=== PATIENT | male | born 1965 | race African-American/Black ===

== ENCOUNTER 2019-02-27 09:49 | Inpatient (IN) | payer OTHER ==
[2019-02-27 11:58] VITALS: BMI 18.1
--- NOTE | 2019-02-27 14:15 | HP ---
CIWA Score Nausea/Vomitin-Mild Nausea/No Vomiting Muscle Tremors: 3 Anxiety: 2 Agitation: 3 Paroxysmal Sweats: 2 Orientation: 0-Oriented Tacttile Disturbances: 0-None Auditory Disturbances: 0-None Visual Disturbances: 0-None Headache: 0-None Present CIWA-Ar Total Score: 11 - Admission Criteria OASAS Guidelines: Admission for Medically Managed Detox: Requires at least one of the followin. CIWA greater than 12 2. Seizures within the past 24 hours 3. Delirium tremens within the past 24 hours 4. Hallucinations within the past 24 hours 5. Acute intervention needed for co occurring medical disorder 6. Acute intervention needed for co occurring psychiatric disorder 7. Severe withdrawal that cannot be handled at a lower level of care (continued vomiting, continued diarrhea, abnormal vital signs) requiring intravenous medication and/or fluids 8. Admission ROS S - HPI Chief Complaint: I drink too much and need to stop. Allergies/Adverse Reactions: Allergies Allergy/AdvReac Type Severity Reaction Status Date / Time No Known Allergies Allergy Verified 02/27/19 11:29 History of Present Illness: pt is a 53yr old male with a history of alcohol dependence seeking detox for treatment. Pt has had h/o of falls d/t intoxication. pt states he fell about 3 weeks ago and had head injury and had orin placed and now they are removed. Pt has a healed scar to back of head. Pt denies any headaches at this time. pt has h/t HIV, HTN, acid reflux. Exam Limitations: No Limitations - Ebola screening Have you traveled outside of the country in the last 21 days: No (N) Have you had contact with anyone from an Ebola affected area: No Have you been sick,other than usual withdrawal symptoms: No Do you have a fever: No - Review of Systems Constitutional: Chills, Diaphoresis, Night Sweats EENT: reports: Tearing, Dental Problems (missing teeth) Respiratory: reports: No Symptoms reported Cardiac: reports: Lightheadedness GI: reports: Poor Appetite, Poor Fluid Intake : reports: No Symptoms Reported Musculoskeletal: reports: No Symptoms Reported Integumentary: reports: Lumps (healed scar to back of head) Neuro: reports: Tingling, Tremors Endocrine: reports: Excessive Sweating, Flushing, Intolerance to Cold, Intolerance to Heat Hematology: reports: No Symptoms Reported Psychiatric: reports: Judgement Intact, Mood/Affect Appropiate, Orientated x3, Agitated, Anxious, Depressed Other Systems: Reviewed and Negative Patient History - Patient Medical History Hx Anemia: No Hx Asthma: No Hx Chronic Obstructive Pulmonary Disease (COPD): No Hx Cancer: No Hx Cardiac Disorders: No Hx Congestive Heart Failure: No Hx Hypertension: Yes Hx Hypercholesterolemia: No Hx Pacemaker: No HX Cerebrovascular Accident: No Hx Seizures: No Hx Dementia: No Hx Diabetes: No Hx Gastrointestinal Disorders: No Hx Liver Disease: No Hx Genitourinary Disorders: No Hx Sexually Transmitted Disorders: No Hx Renal Disease (ESRD): No Hx Thyroid Disease: No Hx Human Immunodeficiency Virus (HIV): Yes (dx in 1997, currently on medication) Hx Hepatitis C: Yes (never treatment.) Hx Depression: No Hx Suicide Attempt: No (denies) Hx Bipolar Disorder: No Hx Schizophrenia: No - Patient Surgical History Past Surgical History: No - PPD History Previous Implant?: Yes Documented Results: Negative w/o proof PPD to be Administered?: Yes - Reproductive History Patient is a Female of Child Bearing Age (11 -55 yrs old): No - Smoking Cessation Smoking history: Current every day smoker Have you smoked in the past 12 months: Yes Aproximately how many cigarettes per day: 1 Hx Chewing Tobacco Use: No Initiated information on smoking cessation: Yes 'Breaking Loose' booklet given: 02/27/19 - Substance & Tx. History Hx Alcohol Use: Yes Hx Substance Use: No Substance Use Type: Alcohol Hx Substance Use Treatment: No - Substances abused Alcohol Substance route: Oral Frequency: Daily Amount used: Beers/Liquor- a lot Age of first use: 16 Date of last use: 02/26/19 Family Disease History - Family Disease History Family History: Denies Admission Physical Exam S - Vital Signs Vital Signs: Vital Signs - 24 hr 02/27/19 11:54 Temperature 98.3 F Pulse Rate 88 Respiratory 18 Rate Blood Pressure 150/84 - Physical General Appearance: Yes: Appropriately Dressed, Mild Distress, Thin, Tremorous, Irritable, Sweating, Anxious HEENTM: Yes: Normal Voice Respiratory: Yes: Lungs Clear, Normal Breath Sounds, No Respiratory Distress Neck: Yes: Within Normal Limits Breast: Yes: Within Normal Limits Cardiology: Yes: Regular Rhythm, Regular Rate, S1, S2 Abdominal: Yes: Normal Bowel Sounds, Non Tender, Soft Genitourinary: Yes: Within Normal Limits Back: Yes: Normal Inspection Musculoskeletal: Yes: full range of Motion, Gait Steady, Back pain Extremities: Yes: Normal Capillary Refill, Non-Tender, Tremors Neurological: Yes: Fully Oriented, Alert, Normal Response Integumentary: Yes: Normal Color Lymphatic: Yes: Within Normal Limits - Diagnostic (1) Alcohol dependence with uncomplicated withdrawal Current Visit: Yes Status: Chronic (2) Head lump Current Visit: No Status: Chronic (3) H/O head injury without skull fracture Current Visit: No Status: Chronic (4) HIV disease Current Visit: Yes Status: Chronic Comment: currently on descovy and tivicay. (5) Hepatitis C virus Current Visit: Yes Status: Chronic Qualifiers: Viral hepatitis chronicity: chronic Hepatic coma status: without hepatic coma Qualified Code(s): B18.2 - Chronic viral hepatitis C Cleared for Admission S - Detox or Rehab [facility] Level of Care: Medically Managed Detox Regimen/Protocol: Librium Breathalyzer - Breathalyzer Breathalyzer: 0 Urine Drug Screen - Test Device Lot number: [id number] Expiration date: 01/30/20 - Control Is test valid?: Yes - Results Drug screen NEGATIVE: No Urine drug screen results: THC-Marijuana, ELLIS-Cocaine, BZO-Benzodiazepines Inpatient Rehab Admission - Rehab Decision to Admit Inpatient rehab admission?: No
[2019-02-27] MEDS ORDERED: MAG HYDROX/AL HYDROX/SIMETH 30 ML UNIT-DOSE CUP PO PRN (14:49)
[2019-02-27] MEDS ORDERED: NICOTINE POLACRILEX 2 MG GUM BUC PRN (14:49)
[2019-02-27] MEDS ORDERED: BISMUTH SUBSALICYLATE 524 MG/30 ML UD PO PRN (14:49)
[2019-02-27] MEDS ORDERED: ACETAMINOPHEN 325 MG TABLET (FP) PO PRN ×2 (14:49)
[2019-02-27] MEDS ORDERED: ONDANSETRON *ODT* 4 MG TABLET SL PRN (14:49)
[2019-02-27] MEDS ORDERED: MAGNESIUM HYDROX 2400MG/30ML ORAL SUSPENSION 30 ML CUP PO PRN (14:49)
[2019-02-27] MEDS ORDERED: MENTHOL/PHENOL 1 EACH UD MM PRN (14:49)
[2019-02-27] MEDS ORDERED: chlordiazePOXIDE HCL 10 MG CAPSULE PO PRN (14:49)
[2019-02-27] MEDS ORDERED: MAGNESIUM CITRATE 300 ML BOTTLE PO PRN (14:49)
[2019-02-27] MEDS ORDERED: IBUPROFEN 400 MG TABLET (FP) PO PRN (14:49)
[2019-02-27] MEDS ORDERED: hydrOXYzine PAMOATE 25 MG CAPSULE (FP) PO PRN (14:49)
[2019-02-27] MEDS ORDERED: BACLOFEN 10 MG TABLET (FP) PO PRN (14:49)
[2019-02-27] MEDS ORDERED: MELATONIN 5 MG TABLETS PO PRN (14:49)
[2019-02-27] MEDS ORDERED: chlordiazePOXIDE HCL 25 MG CAPSULE PO ONE (15:00)
[2019-02-27] MEDS: LISINOPRIL 10 MG TABLET (FP) PO SCH (16:06)
--- NOTE | 2019-02-27 17:13 | EKG ---
Test Reason : Blood Pressure : / mmHG Vent. Rate : 084 BPM Atrial Rate : 084 BPM P-R Int : 156 ms QRS Dur : 076 ms QT Int : 392 ms P-R-T Axes : 058 -02 034 degrees QTc Int : 463 ms NORMAL SINUS RHYTHM POSSIBLE LEFT ATRIAL ENLARGEMENT BORDERLINE ECG NO PREVIOUS ECGS AVAILABLE Confirmed by LAURO CARTER MD ([id number]) on 02/27/2019 5:13:33 PM Referred By: Confirmed By:LAURO CARTER MD
[2019-02-27] MEDS: chlordiazePOXIDE HCL 25 MG CAPSULE PO SCH (22:33)
[2019-02-27] MEDS: dilTIAZem HCL 30 MG TABLET (FP) PO SCH (22:33)
[2019-02-27] MEDS: THIAMINE HCL 100 MG TABLET (FP) PO SCH (22:33)
[2019-02-28] MEDS: dilTIAZem HCL 30 MG TABLET (FP) PO SCH ×3 (06:25→22:07)
[2019-02-28] MEDS: chlordiazePOXIDE HCL 25 MG CAPSULE PO SCH ×2 (06:25→14:19)
[2019-02-28] MEDS: DOLUTEGRAVIR SODIUM 50 MG TABLET (NON-FORMULARY) PO SCH (07:27)
[2019-02-28] MEDS: EMTRICITABINE/TENOFOV ALAFENAM (DESCOVY) TABLET PO SCH (07:27)
[2019-02-28] MEDS: PRENATAL VITAMINS W/ FOLIC ACID TABLET (FP) PO SCH (10:34)
[2019-02-28] MEDS: LISINOPRIL 10 MG TABLET (FP) PO SCH (10:34)
[2019-02-28] MEDS: NICOTINE 7 MG/24 HOURS TOPICAL PATCH TD SCH (10:34)
--- NOTE | 2019-02-28 11:27 | PN ---
[facility] CIWA - CIWA Score Nausea/Vomitin Muscle Tremors: 2 Anxiety: 2 Agitation: 2 Paroxysmal Sweats: 1-Minimal Palms Moist Orientation: 0-Oriented Tacttile Disturbances: 1-Very Mild Itch/Numbness Auditory Disturbances: 1-Very Mild Visual Disturbances: 0-None Headache: 2-Mild CIWA-Ar Total Score: 13 [facility] Progress Note (SOAP) Subjective: alert,irritable,anxious,interrupted sleep,tremor Objective: 02/28/19 11:25 Vital Signs Temperature 96.8 F L 02/28/19 09:51 Pulse Rate 81 02/28/19 09:51 Respiratory Rate 18 02/28/19 09:51 Blood Pressure 140/91 02/28/19 09:51 O2 Sat by Pulse Oximetry (%) 02/28/19 11:25 labs pending Assessment: 02/28/19 11:26 withdrawal symptom Plan: continue detox
[2019-02-28] MEDS: RANITIDINE HCL 150 MG TABLET (FP) PO SCH (20:25)
[2019-02-28] MEDS: THIAMINE HCL 100 MG TABLET (FP) PO SCH (22:07)
[2019-02-28] MEDS: chlordiazePOXIDE 5 MG CAPSULE PO SCH (22:07)
[2019-03-01] MEDS: chlordiazePOXIDE 5 MG CAPSULE PO SCH ×2 (06:10→12:48)
[2019-03-01] MEDS: dilTIAZem HCL 30 MG TABLET (FP) PO SCH ×3 (06:10→22:31)
[2019-03-01] MEDS: DOLUTEGRAVIR SODIUM 50 MG TABLET (NON-FORMULARY) PO SCH (07:02)
[2019-03-01] MEDS: EMTRICITABINE/TENOFOV ALAFENAM (DESCOVY) TABLET PO SCH (07:02)
--- NOTE | 2019-03-01 09:52 | PN ---
[facility] CIWA - CIWA Score Nausea/Vomitin Muscle Tremors: 2 Anxiety: 2 Agitation: 2 Paroxysmal Sweats: 1-Minimal Palms Moist Orientation: 0-Oriented Tacttile Disturbances: 1-Very Mild Itch/Numbness Auditory Disturbances: 1-Very Mild Visual Disturbances: 0-None Headache: 2-Mild CIWA-Ar Total Score: 13 [facility] Progress Note (SOAP) Subjective: alert,irritable,anxious,interrupted sleep,poor appetite stated taking marinol at home Objective: 03/01/19 09:59 Vital Signs Temperature 97.7 F 03/01/19 06:18 Pulse Rate 84 03/01/19 06:18 Respiratory Rate 18 03/01/19 06:18 Blood Pressure 133/81 03/01/19 06:18 O2 Sat by Pulse Oximetry (%) 03/01/19 10:00 labs pending Assessment: 03/01/19 10:00 withdrawal symptom Plan: continue detox,marinol 2.5 mgs po bid ,1 hr before lunch and dinner
[2019-03-01] MEDS: NICOTINE 7 MG/24 HOURS TOPICAL PATCH TD SCH (10:42)
[2019-03-01] MEDS: PRENATAL VITAMINS W/ FOLIC ACID TABLET (FP) PO SCH (10:42)
[2019-03-01] MEDS: LISINOPRIL 10 MG TABLET (FP) PO SCH (10:42)
[2019-03-01] MEDS: RANITIDINE HCL 150 MG TABLET (FP) PO SCH (10:43)
[2019-03-01 10:55] LABS: HEMATOCRIT 34.8 % (35.4-49); HEMOGLOBIN 11.9 GM/dL (11.7-16.9); MCH 34.1 pg (25.7-33.7); MCHC 34.3 g/dl (32.0-35.9); MEAN CELL VOLUME 99.5 fl (80-96); MEAN PLT VOLUME 8.2 fl (7.5-11.1); PLATELET COUNT 225 K/MM3 (134-434); WHITE BLOOD COUNT 3.5 K/mm3 (4.0-10.0)
[2019-03-01 11:08] LABS: ALBUMIN 3.3 g/dl (3.4-5.0); BILIRUBIN,TOTAL 0.3 mg/dL (0.2-1); CALCIUM 9.4 mg/dL (8.5-10.1); CREATININE 0.7 mg/dL (0.55-1.3); POTASSIUM 3.9 mmol/L (3.5-5.1); TOT PROT 7.1 g/dl (6.4-8.2)
[2019-03-01] MEDS: DRONABINOL 2.5 MG CAPSULE PO SCH ×2 (11:44→17:06)
[2019-03-01] MEDS: THIAMINE HCL 100 MG TABLET (FP) PO SCH (22:31)
[2019-03-01] MEDS: chlordiazePOXIDE HCL 10 MG CAPSULE PO SCH (22:31)
[2019-03-02] MEDS: chlordiazePOXIDE HCL 10 MG CAPSULE PO SCH ×2 (06:12→13:12)
[2019-03-02] MEDS: dilTIAZem HCL 30 MG TABLET (FP) PO SCH ×2 (06:12→13:17)
[2019-03-02 06:22] VITALS: PULSE 96
[2019-03-02] MEDS: EMTRICITABINE/TENOFOV ALAFENAM (DESCOVY) TABLET PO SCH (07:14)
[2019-03-02] MEDS: DOLUTEGRAVIR SODIUM 50 MG TABLET (NON-FORMULARY) PO SCH (07:14)
[2019-03-02 09:05] VITALS: BP 121/92; TEMP 98.3
[2019-03-02] MEDS: RANITIDINE HCL 150 MG TABLET (FP) PO SCH (10:58)
[2019-03-02] MEDS: NICOTINE 7 MG/24 HOURS TOPICAL PATCH TD SCH (10:58)
[2019-03-02] MEDS: DRONABINOL 2.5 MG CAPSULE PO SCH (10:58)
[2019-03-02] MEDS: PRENATAL VITAMINS W/ FOLIC ACID TABLET (FP) PO SCH (10:58)
[2019-03-02] MEDS: LISINOPRIL 10 MG TABLET (FP) PO SCH (10:58)
--- NOTE | 2019-03-02 13:53 | DS ---
[facility] Detox Discharge Summary Admission Date: 02/27/19 Discharge Date: 03/02/19 - History Present History: Alcohol Dependence Additional Comments: Pt is medically cleared and is discharged to [facility] inpatient rehab for continued care and management. Pertinent Past History: pt has h/o HIV, HTN, acid reflux. - Physical Exam Results Vital Signs: Vital Signs Temperature 98.3 F 03/02/19 09:04 Pulse Rate 96 H 03/02/19 09:04 Respiratory Rate 18 03/02/19 09:04 Blood Pressure 121/92 03/02/19 09:04 O2 Sat by Pulse Oximetry (%) Vital Signs - 24 hr 03/01/19 03/01/19 03/02/19 18:27 22:11 00:30 Temperature 98.2 F 96.8 F L Pulse Rate 91 H 83 Respiratory 18 18 18 Rate Blood Pressure 145/94 137/93 03/02/19 03/02/19 03/02/19 03:30 06:00 09:04 Temperature 97.9 F 98.3 F Pulse Rate 96 H 96 H Respiratory 18 16 18 Rate Blood Pressure 135/90 121/92 Pertinent Admission Physical Exam Findings: withdrawal symptoms. - Treatment Hospital Course: Detox Protocol Followed, Detoxed Safely, Responded well, Discharged Condition Good, Rehab Referral Accepted Patient has Accepted a Rehab Referral to: [facility] - Medication Discharge Medications: Ambulatory Orders Dolutegravir Sodium [Tivicay] 25 mg PO DAILY 02/27/19 Emtricitabine/Tenofov Alafenam [Descovy 200-25 mg Tablet (Nf)] 1 each PO DAILY 02/27/19 - Diagnosis (1) Alcohol dependence with uncomplicated withdrawal Status: Chronic (2) H/O head injury without skull fracture Status: Chronic (3) HIV disease Status: Chronic (4) Hepatitis C virus Status: Chronic Qualifiers: Viral hepatitis chronicity: chronic Hepatic coma status: without hepatic coma Qualified Code(s): B18.2 - Chronic viral hepatitis C - AMA Did Patient Leave Against Medical Advice: No
== END 2019-03-02 13:40 | disposition other institution (70) | DRG 775 ==
LOC: YASAS 09:49 → Y6N 14:55
PROVIDERS: ADMIT Surgery; ATTEND Surgery
PROC: HZ2ZZZZ Detoxification Services for Substance Abuse Treatment (ICD-10-PCS; principal; 2019-02-27)
DX: F10.230 Alcohol dependence with withdrawal, uncomplicated (principal); Z21 Asymptomatic human immunodeficiency virus [HIV] infection status; I10 Essential (primary) hypertension; K21.9 Gastro-esophageal reflux disease without esophagitis; B18.2 Chronic viral hepatitis C; Z87.828 Personal history of other (healed) physical injury and trauma
CPT/HCPCS: 36415; 80053; 85027; 86593; 93005; 93010

== ENCOUNTER 2019-03-02 13:54 | Inpatient (IN) | payer OTHER | END 2019-03-15 08:48 | disposition home or self-care (01) | LOC: YASAS 13:54 → Y3W 13:55 | PROC: HZ42ZZZ Group Counseling for Substance Abuse Treatment, Cognitive-Behavioral (ICD-10-PCS; principal; 2019-03-02) | DX: F10.20 Alcohol dependence, uncomplicated (principal); Z21 Asymptomatic human immunodeficiency virus [HIV] infection status; I10 Essential (primary) hypertension; B18.2 Chronic viral hepatitis C; R63.6 Underweight; Z68.1 Body mass index [BMI] 19.9 or less, adult; Z87.828 Personal history of other (healed) physical injury and trauma; Z91.81 History of falling ==

== ENCOUNTER 2020-12-02 12:56 | Inpatient (IN) | payer OTHER ==
[2020-12-02 13:27] VITALS: BMI 22.3
[2020-12-02] MEDS ORDERED: MAG HYDROX/AL HYDROX/SIMETH 30 ML UNIT-DOSE CUP PO PRN (14:27)
[2020-12-02] MEDS ORDERED: MAGNESIUM HYDROX 2400MG/30ML ORAL SUSPENSION 30 ML CUP PO PRN (14:27)
[2020-12-02] MEDS ORDERED: ONDANSETRON *ODT* 4 MG TABLET SL PRN (14:27)
[2020-12-02] MEDS ORDERED: METHOCARBAMOL 500 MG TABLET PO PRN (14:27)
[2020-12-02] MEDS ORDERED: IBUPROFEN 400 MG TABLET (FP) PO PRN (14:27)
[2020-12-02] MEDS ORDERED: MAGNESIUM CITRATE 300 ML BOTTLE PO PRN (14:27)
[2020-12-02] MEDS ORDERED: chlordiazePOXIDE HCL 25 MG CAPSULE PO PRN (14:27)
[2020-12-02] MEDS ORDERED: BISMUTH SUBSALICYLATE 262 MG/15 ML BTL PO PRN (14:27)
[2020-12-02] MEDS ORDERED: ACETAMINOPHEN 325 MG TABLET (FP) PO PRN ×2 (14:27)
[2020-12-02] MEDS ORDERED: MENTHOL/PHENOL 1 EACH UD MM PRN (14:27)
[2020-12-02] MEDS: chlordiazePOXIDE HCL 25 MG CAPSULE PO SCH ×2 (17:42→22:21)
[2020-12-02] MEDS: hydrOXYzine PAMOATE 25 MG CAPSULE (FP) PO SCH ×2 (17:42→22:20)
[2020-12-02] MEDS: DRONABINOL 2.5 MG CAPSULE PO SCH (17:42)
[2020-12-02] MEDS: PRENATAL VITAMINS W/ FOLIC ACID TABLET (FP) PO SCH (17:46)
[2020-12-02] MEDS: dilTIAZem HCL 30 MG TABLET PO SCH (22:19)
[2020-12-02] MEDS: MELATONIN 5 MG TABLETS PO SCH (22:19)
[2020-12-02] MEDS: THIAMINE HCL 100 MG TABLET (FP) PO SCH (22:20)
[2020-12-03] MEDS: hydrOXYzine PAMOATE 25 MG CAPSULE (FP) PO SCH (05:19)
[2020-12-03] MEDS: chlordiazePOXIDE HCL 25 MG CAPSULE PO SCH ×5 (05:19→23:40)
[2020-12-03] MEDS: dilTIAZem HCL 30 MG TABLET PO SCH (05:20)
[2020-12-03] MEDS: DRONABINOL 2.5 MG CAPSULE PO SCH ×2 (07:10→18:24)
[2020-12-03] MEDS ORDERED: hydrOXYzine PAMOATE 25 MG CAPSULE (FP) PO PRN (09:33)
[2020-12-03] MEDS ORDERED: DOLUTEGRAVIR SODIUM 50 MG TABLET (NON-FORMULARY) PO SCH (10:00)
[2020-12-03] MEDS ORDERED: dilTIAZem HCL 60 MG TABLET PO ONE (10:53)
[2020-12-03] MEDS: PRENATAL VITAMINS W/ FOLIC ACID TABLET (FP) PO SCH (11:05)
[2020-12-03] MEDS: EMTRICITABINE/TENOFOV ALAFENAM (DESCOVY) TABLET PO SCH (11:05)
[2020-12-03] MEDS: PANTOPRAZOLE 40 MG TABLET PO SCH (11:06)
[2020-12-03] MEDS: LISINOPRIL 10 MG TABLET PO SCH (11:09)
[2020-12-03 13:47] LABS: POTASSIUM 3.5 mmol/L (3.5-5.1)
[2020-12-03 13:54] LABS: HEMOGLOBIN 11.8 GM/dL (11.7-16.9); MCH 32.1 pg (25.7-33.7); MCHC 34.8 g/dl (32.0-35.9); MEAN CELL VOLUME 92.4 fl (80-96); MEAN PLT VOLUME 8.5 fl (7.5-11.1); PLATELET COUNT 229 K/MM3 (134-434); RBC 3.69 M/mm3 (4.00-5.60); RDW 16.3 % (11.9-15.9); WHITE BLOOD COUNT 4.1 K/mm3 (4.0-10.0)
[2020-12-03 13:57] LABS: ALBUMIN 3.4 g/dl (3.4-5.0); BLOOD UREA NITROGEN 8.5 mg/dL (7-18)
[2020-12-03 13:58] LABS: BILIRUBIN,TOTAL 0.3 mg/dL (0.2-1)
[2020-12-03 13:59] LABS: CALCIUM 8.7 mg/dL (8.5-10.1); TOT PROT 7.6 g/dl (6.4-8.2)
[2020-12-03 14:00] LABS: CREATININE 0.7 mg/dL (0.55-1.3)
[2020-12-03] MEDS: dilTIAZem HCL 60 MG TABLET PO SCH ×2 (14:33→22:52)
[2020-12-03] MEDS: THIAMINE HCL 100 MG TABLET (FP) PO SCH (22:51)
[2020-12-03] MEDS: MELATONIN 5 MG TABLETS PO SCH (22:52)
[2020-12-04] MEDS: chlordiazePOXIDE HCL 25 MG CAPSULE PO SCH ×4 (05:20→22:44)
[2020-12-04] MEDS: DRONABINOL 2.5 MG CAPSULE PO SCH ×2 (07:46→18:27)
[2020-12-04] MEDS ORDERED: dilTIAZem HCL 60 MG TABLET PO SCH (10:00)
[2020-12-04] MEDS: DOLUTEGRAVIR SODIUM 50 MG TABLET (NON-FORMULARY) PO SCH (10:34)
[2020-12-04] MEDS: PANTOPRAZOLE 40 MG TABLET PO SCH (10:34)
[2020-12-04] MEDS: PRENATAL VITAMINS W/ FOLIC ACID TABLET (FP) PO SCH (10:34)
[2020-12-04] MEDS: EMTRICITABINE/TENOFOV ALAFENAM (DESCOVY) TABLET PO SCH (10:34)
[2020-12-04] MEDS: LISINOPRIL 10 MG TABLET PO SCH (10:34)
[2020-12-04] MEDS: MELATONIN 5 MG TABLETS PO SCH (22:45)
[2020-12-04] MEDS: THIAMINE HCL 100 MG TABLET (FP) PO SCH (22:45)
[2020-12-05] MEDS ORDERED: chlordiazePOXIDE HCL 10 MG CAPSULE PO PRN
[2020-12-05] MEDS: chlordiazePOXIDE HCL 10 MG CAPSULE PO SCH ×4 (05:45→22:12)
[2020-12-05] MEDS: LISINOPRIL 10 MG TABLET PO SCH (10:23)
[2020-12-05] MEDS: DRONABINOL 2.5 MG CAPSULE PO SCH ×2 (10:23→17:56)
[2020-12-05] MEDS: PANTOPRAZOLE 40 MG TABLET PO SCH (10:23)
[2020-12-05] MEDS: DOLUTEGRAVIR SODIUM 50 MG TABLET (NON-FORMULARY) PO SCH (10:24)
[2020-12-05] MEDS: EMTRICITABINE/TENOFOV ALAFENAM (DESCOVY) TABLET PO SCH (10:24)
[2020-12-05] MEDS: PRENATAL VITAMINS W/ FOLIC ACID TABLET (FP) PO SCH (10:24)
[2020-12-05] MEDS: MELATONIN 5 MG TABLETS PO SCH (22:13)
[2020-12-05] MEDS: THIAMINE HCL 100 MG TABLET (FP) PO SCH (22:13)
[2020-12-06] MEDS: chlordiazePOXIDE HCL 10 MG CAPSULE PO SCH ×2 (05:47→18:13)
[2020-12-06] MEDS: DRONABINOL 2.5 MG CAPSULE PO SCH ×2 (08:09→18:13)
[2020-12-06] MEDS: PRENATAL VITAMINS W/ FOLIC ACID TABLET (FP) PO SCH (11:04)
[2020-12-06] MEDS: LISINOPRIL 10 MG TABLET PO SCH (11:04)
[2020-12-06] MEDS: DOLUTEGRAVIR SODIUM 50 MG TABLET (NON-FORMULARY) PO SCH (11:05)
[2020-12-06] MEDS: PANTOPRAZOLE 40 MG TABLET PO SCH (11:05)
[2020-12-06] MEDS: EMTRICITABINE/TENOFOV ALAFENAM (DESCOVY) TABLET PO SCH (11:06)
[2020-12-06] MEDS: MELATONIN 5 MG TABLETS PO SCH (22:40)
[2020-12-06] MEDS: THIAMINE HCL 100 MG TABLET (FP) PO SCH (22:41)
[2020-12-07] MEDS ORDERED: chlordiazePOXIDE HCL 10 MG CAPSULE PO ONE (05:00)
[2020-12-07] MEDS: DRONABINOL 2.5 MG CAPSULE PO SCH (07:39)
[2020-12-07 09:32] VITALS: BP 115/71; PULSE 107; TEMP 96.8
[2020-12-07] MEDS: EMTRICITABINE/TENOFOV ALAFENAM (DESCOVY) TABLET PO SCH (11:10)
[2020-12-07] MEDS: PRENATAL VITAMINS W/ FOLIC ACID TABLET (FP) PO SCH (11:11)
[2020-12-07] MEDS: PANTOPRAZOLE 40 MG TABLET PO SCH (11:11)
[2020-12-07] MEDS: DOLUTEGRAVIR SODIUM 50 MG TABLET (NON-FORMULARY) PO SCH (11:11)
[2020-12-07] MEDS: LISINOPRIL 10 MG TABLET PO SCH (11:11)
== END 2020-12-07 13:15 | disposition other institution (70) | DRG 775 ==
LOC: YASAS 12:56 → Y3N 14:18
PROVIDERS: ADMIT Allergy & Immunology; ATTEND Allergy & Immunology
PROC: HZ2ZZZZ Detoxification Services for Substance Abuse Treatment (ICD-10-PCS; principal; 2020-12-02)
DX: F10.230 Alcohol dependence with withdrawal, uncomplicated (principal); F10.220 Alcohol dependence with intoxication, uncomplicated; F17.210 Nicotine dependence, cigarettes, uncomplicated; Z21 Asymptomatic human immunodeficiency virus [HIV] infection status; G62.9 Polyneuropathy, unspecified; I10 Essential (primary) hypertension; B18.2 Chronic viral hepatitis C; R76.8 Other specified abnormal immunological findings in serum; Z87.828 Personal history of other (healed) physical injury and trauma; Z86.19 Personal history of other infectious and parasitic diseases; Z99.89 Dependence on other enabling machines and devices
CPT/HCPCS: 36415; 80053; 85027; 86593; 86780; C9803; U0003

== ENCOUNTER 2020-12-07 14:11 | Inpatient (IN) | payer OTHER ==
[2020-12-07] MEDS ORDERED: LOPERAMIDE HCL 2 MG CAPSULE PO PRN (15:13)
[2020-12-07] MEDS ORDERED: MAGNESIUM CITRATE 300 ML BOTTLE PO PRN (15:13)
[2020-12-07] MEDS ORDERED: guaiFENesin 200 MG/10 ML 10 ML UNIT-DOSE CUPS PO PRN (15:13)
[2020-12-07] MEDS ORDERED: NICOTINE POLACRILEX 2 MG GUM BUC PRN (15:13)
[2020-12-07] MEDS ORDERED: P-EPHED 60MG/TRIPROLIDI 2.5MG TABLET PO PRN (15:13)
[2020-12-07] MEDS ORDERED: MAG HYDROX/AL HYDROX/SIMETH 30 ML UNIT-DOSE CUP PO PRN (15:13)
[2020-12-07] MEDS ORDERED: MAGNESIUM HYDROX 2400MG/30ML ORAL SUSPENSION 30 ML CUP PO PRN (15:13)
[2020-12-07] MEDS ORDERED: MENTHOL/PHENOL 1 EACH UD MM PRN (15:13)
[2020-12-07] MEDS ORDERED: CYPROHEPTADINE HCL 4 MG TABLET PO SCH (16:30)
[2020-12-07] MEDS: DRONABINOL 2.5 MG CAPSULE PO SCH (17:22)
[2020-12-07] MEDS: MELATONIN 5 MG TABLETS PO SCH (21:46)
[2020-12-07] MEDS: THIAMINE HCL 100 MG TABLET (FP) PO SCH (21:46)
[2020-12-08] MEDS: DRONABINOL 2.5 MG CAPSULE PO SCH ×3 (07:14→17:07)
[2020-12-08] MEDS: PRENATAL VITAMINS W/ FOLIC ACID TABLET (FP) PO SCH (10:46)
[2020-12-08] MEDS: EMTRICITABINE/TENOFOV ALAFENAM (DESCOVY) TABLET PO SCH (10:47)
[2020-12-08] MEDS: LISINOPRIL 10 MG TABLET PO SCH (10:47)
[2020-12-08] MEDS: DOLUTEGRAVIR SODIUM 50 MG TABLET (NON-FORMULARY) PO SCH (10:47)
[2020-12-08] MEDS: NICOTINE 7 MG/24 HOURS TOPICAL PATCH TD SCH (10:48)
[2020-12-08] MEDS: PANTOPRAZOLE 40 MG TABLET PO SCH (10:50)
[2020-12-08] MEDS: THIAMINE HCL 100 MG TABLET (FP) PO SCH (21:30)
[2020-12-08] MEDS: MELATONIN 5 MG TABLETS PO SCH (21:31)
[2020-12-09] MEDS: DRONABINOL 2.5 MG CAPSULE PO SCH ×3 (06:12→17:10)
[2020-12-09] MEDS: LISINOPRIL 10 MG TABLET PO SCH (10:14)
[2020-12-09] MEDS: EMTRICITABINE/TENOFOV ALAFENAM (DESCOVY) TABLET PO SCH (10:14)
[2020-12-09] MEDS: DOLUTEGRAVIR SODIUM 50 MG TABLET (NON-FORMULARY) PO SCH (10:14)
[2020-12-09] MEDS: PANTOPRAZOLE 40 MG TABLET PO SCH (10:14)
[2020-12-09] MEDS: PRENATAL VITAMINS W/ FOLIC ACID TABLET (FP) PO SCH (10:15)
[2020-12-09] MEDS: NICOTINE 7 MG/24 HOURS TOPICAL PATCH TD SCH (10:15)
[2020-12-09] MEDS: THIAMINE HCL 100 MG TABLET (FP) PO SCH (21:24)
[2020-12-09] MEDS: MELATONIN 5 MG TABLETS PO SCH (21:24)
[2020-12-10] MEDS: DRONABINOL 2.5 MG CAPSULE PO SCH ×3 (06:19→17:10)
[2020-12-10] MEDS: EMTRICITABINE/TENOFOV ALAFENAM (DESCOVY) TABLET PO SCH (10:20)
[2020-12-10] MEDS: PANTOPRAZOLE 40 MG TABLET PO SCH (10:20)
[2020-12-10] MEDS: DOLUTEGRAVIR SODIUM 50 MG TABLET (NON-FORMULARY) PO SCH (10:20)
[2020-12-10] MEDS: PRENATAL VITAMINS W/ FOLIC ACID TABLET (FP) PO SCH (10:21)
[2020-12-10] MEDS: NICOTINE 7 MG/24 HOURS TOPICAL PATCH TD SCH (10:21)
[2020-12-10] MEDS ORDERED: NALTREXONE HCL 50 MG TABLET PO SCH ×2 (11:30→12:05)
[2020-12-10] MEDS: LISINOPRIL 10 MG TABLET PO SCH (11:37)
[2020-12-10] MEDS: THIAMINE HCL 100 MG TABLET (FP) PO SCH (21:39)
[2020-12-10] MEDS: MELATONIN 5 MG TABLETS PO SCH (21:39)
[2020-12-11] MEDS: DRONABINOL 2.5 MG CAPSULE PO SCH ×3 (06:31→16:42)
[2020-12-11] MEDS: PANTOPRAZOLE 40 MG TABLET PO SCH (09:58)
[2020-12-11] MEDS: PRENATAL VITAMINS W/ FOLIC ACID TABLET (FP) PO SCH (09:59)
[2020-12-11] MEDS: EMTRICITABINE/TENOFOV ALAFENAM (DESCOVY) TABLET PO SCH (09:59)
[2020-12-11] MEDS: NICOTINE 7 MG/24 HOURS TOPICAL PATCH TD SCH (09:59)
[2020-12-11] MEDS: DOLUTEGRAVIR SODIUM 50 MG TABLET (NON-FORMULARY) PO SCH (10:01)
[2020-12-11] MEDS: LISINOPRIL 10 MG TABLET PO SCH (10:56)
[2020-12-11] MEDS: THIAMINE HCL 100 MG TABLET (FP) PO SCH (21:34)
[2020-12-11] MEDS: MELATONIN 5 MG TABLETS PO SCH (21:34)
[2020-12-11] MEDS: hydrOXYzine PAMOATE 25 MG CAPSULE (FP) PO PRN (21:35)
[2020-12-12] MEDS: DRONABINOL 2.5 MG CAPSULE PO SCH ×3 (06:46→16:58)
[2020-12-12] MEDS ORDERED: PT OWN MED DRAWER 7, Y5N ONE (09:18)
[2020-12-12] MEDS: hydrOXYzine PAMOATE 25 MG CAPSULE (FP) PO PRN (10:36)
[2020-12-12] MEDS: PRENATAL VITAMINS W/ FOLIC ACID TABLET (FP) PO SCH (10:36)
[2020-12-12] MEDS: PANTOPRAZOLE 40 MG TABLET PO SCH (10:36)
[2020-12-12] MEDS: NICOTINE 7 MG/24 HOURS TOPICAL PATCH TD SCH (10:37)
[2020-12-12] MEDS: EMTRICITABINE/TENOFOV ALAFENAM (DESCOVY) TABLET PO SCH (10:37)
[2020-12-12] MEDS: LISINOPRIL 10 MG TABLET PO SCH (10:37)
[2020-12-12] MEDS: DOLUTEGRAVIR SODIUM 50 MG TABLET (NON-FORMULARY) PO SCH (10:38)
[2020-12-12] MEDS: THIAMINE HCL 100 MG TABLET (FP) PO SCH (21:44)
[2020-12-12] MEDS: MELATONIN 5 MG TABLETS PO SCH (21:44)
[2020-12-13] MEDS: DRONABINOL 2.5 MG CAPSULE PO SCH ×3 (06:15→16:43)
[2020-12-13] MEDS: PANTOPRAZOLE 40 MG TABLET PO SCH (10:27)
[2020-12-13] MEDS: PRENATAL VITAMINS W/ FOLIC ACID TABLET (FP) PO SCH (10:27)
[2020-12-13] MEDS: LISINOPRIL 10 MG TABLET PO SCH (10:27)
[2020-12-13] MEDS: EMTRICITABINE/TENOFOV ALAFENAM (DESCOVY) TABLET PO SCH (10:28)
[2020-12-13] MEDS: NICOTINE 7 MG/24 HOURS TOPICAL PATCH TD SCH (10:28)
[2020-12-13] MEDS: DOLUTEGRAVIR SODIUM 50 MG TABLET (NON-FORMULARY) PO SCH (10:28)
[2020-12-13] MEDS: THIAMINE HCL 100 MG TABLET (FP) PO SCH (21:47)
[2020-12-13] MEDS: MELATONIN 5 MG TABLETS PO SCH (21:47)
[2020-12-14] MEDS: DRONABINOL 2.5 MG CAPSULE PO SCH ×3 (06:09→17:24)
[2020-12-14] MEDS: IBUPROFEN 400 MG TABLET (FP) PO PRN (06:10)
[2020-12-14] MEDS: PRENATAL VITAMINS W/ FOLIC ACID TABLET (FP) PO SCH (10:43)
[2020-12-14] MEDS: EMTRICITABINE/TENOFOV ALAFENAM (DESCOVY) TABLET PO SCH (10:44)
[2020-12-14] MEDS: LISINOPRIL 10 MG TABLET PO SCH (10:44)
[2020-12-14] MEDS: PANTOPRAZOLE 40 MG TABLET PO SCH (10:44)
[2020-12-14] MEDS: NICOTINE 7 MG/24 HOURS TOPICAL PATCH TD SCH (10:44)
[2020-12-14] MEDS: DOLUTEGRAVIR SODIUM 50 MG TABLET (NON-FORMULARY) PO SCH (10:44)
[2020-12-14] MEDS: THIAMINE HCL 100 MG TABLET (FP) PO SCH (21:37)
[2020-12-14] MEDS: hydrOXYzine PAMOATE 25 MG CAPSULE (FP) PO PRN (21:37)
[2020-12-14] MEDS: MELATONIN 5 MG TABLETS PO SCH (21:37)
[2020-12-15] MEDS: DRONABINOL 2.5 MG CAPSULE PO SCH ×2 (06:39→17:21)
[2020-12-15] MEDS: IBUPROFEN 400 MG TABLET (FP) PO PRN (06:39)
[2020-12-15] MEDS: PANTOPRAZOLE 40 MG TABLET PO SCH (10:25)
[2020-12-15] MEDS: PRENATAL VITAMINS W/ FOLIC ACID TABLET (FP) PO SCH (10:25)
[2020-12-15] MEDS: NICOTINE 7 MG/24 HOURS TOPICAL PATCH TD SCH (10:26)
[2020-12-15] MEDS: DOLUTEGRAVIR SODIUM 50 MG TABLET (NON-FORMULARY) PO SCH (10:26)
[2020-12-15] MEDS: EMTRICITABINE/TENOFOV ALAFENAM (DESCOVY) TABLET PO SCH (10:26)
[2020-12-15] MEDS: LISINOPRIL 10 MG TABLET PO SCH (10:27)
[2020-12-15] MEDS ORDERED: DRONABINOL 2.5 MG CAPSULE PO ONE (12:15)
[2020-12-15] MEDS: MELATONIN 5 MG TABLETS PO SCH (21:58)
[2020-12-15] MEDS: THIAMINE HCL 100 MG TABLET (FP) PO SCH (21:58)
[2020-12-16] MEDS: DRONABINOL 2.5 MG CAPSULE PO SCH ×3 (06:38→16:17)
[2020-12-16] MEDS: PRENATAL VITAMINS W/ FOLIC ACID TABLET (FP) PO SCH (10:20)
[2020-12-16] MEDS: DOLUTEGRAVIR SODIUM 50 MG TABLET (NON-FORMULARY) PO SCH (10:23)
[2020-12-16] MEDS: NICOTINE 7 MG/24 HOURS TOPICAL PATCH TD SCH (10:23)
[2020-12-16] MEDS: EMTRICITABINE/TENOFOV ALAFENAM (DESCOVY) TABLET PO SCH (10:23)
[2020-12-16] MEDS: ACETAMINOPHEN 325 MG TABLET (FP) PO PRN ×2 (10:24→16:16)
[2020-12-16] MEDS: PANTOPRAZOLE 40 MG TABLET PO SCH (10:24)
[2020-12-16] MEDS: LISINOPRIL 10 MG TABLET PO SCH (10:24)
[2020-12-16] MEDS: MELATONIN 5 MG TABLETS PO SCH (21:33)
[2020-12-16] MEDS: THIAMINE HCL 100 MG TABLET (FP) PO SCH (21:33)
[2020-12-17] MEDS: DRONABINOL 2.5 MG CAPSULE PO SCH ×3 (06:24→17:10)
[2020-12-17] MEDS ORDERED: PT OWN MED DRAWER 7, Y5N ONE (09:12)
[2020-12-17] MEDS: PRENATAL VITAMINS W/ FOLIC ACID TABLET (FP) PO SCH (10:09)
[2020-12-17] MEDS: NICOTINE 7 MG/24 HOURS TOPICAL PATCH TD SCH (10:10)
[2020-12-17] MEDS: PANTOPRAZOLE 40 MG TABLET PO SCH (10:10)
[2020-12-17] MEDS: EMTRICITABINE/TENOFOV ALAFENAM (DESCOVY) TABLET PO SCH (10:10)
[2020-12-17] MEDS: LISINOPRIL 10 MG TABLET PO SCH (10:10)
[2020-12-17] MEDS: DOLUTEGRAVIR SODIUM 50 MG TABLET (NON-FORMULARY) PO SCH (10:10)
[2020-12-17] MEDS: THIAMINE HCL 100 MG TABLET (FP) PO SCH (21:14)
[2020-12-17] MEDS: MELATONIN 5 MG TABLETS PO SCH (21:14)
[2020-12-18] MEDS: DRONABINOL 2.5 MG CAPSULE PO SCH ×3 (06:17→16:36)
[2020-12-18] MEDS: ACETAMINOPHEN 325 MG TABLET (FP) PO PRN ×2 (07:29→16:36)
[2020-12-18] MEDS: PRENATAL VITAMINS W/ FOLIC ACID TABLET (FP) PO SCH (10:05)
[2020-12-18] MEDS: NICOTINE 7 MG/24 HOURS TOPICAL PATCH TD SCH (10:06)
[2020-12-18] MEDS: LISINOPRIL 10 MG TABLET PO SCH (10:07)
[2020-12-18] MEDS: PANTOPRAZOLE 40 MG TABLET PO SCH (10:08)
[2020-12-18] MEDS: EMTRICITABINE/TENOFOV ALAFENAM (DESCOVY) TABLET PO SCH (10:08)
[2020-12-18] MEDS: DOLUTEGRAVIR SODIUM 50 MG TABLET (NON-FORMULARY) PO SCH (10:08)
[2020-12-18] MEDS: MELATONIN 5 MG TABLETS PO SCH (21:28)
[2020-12-18] MEDS: THIAMINE HCL 100 MG TABLET (FP) PO SCH (21:28)
[2020-12-19] MEDS: DRONABINOL 2.5 MG CAPSULE PO SCH ×3 (06:25→15:59)
[2020-12-19] MEDS: LISINOPRIL 10 MG TABLET PO SCH (10:03)
[2020-12-19] MEDS: PRENATAL VITAMINS W/ FOLIC ACID TABLET (FP) PO SCH (10:04)
[2020-12-19] MEDS: PANTOPRAZOLE 40 MG TABLET PO SCH (10:04)
[2020-12-19] MEDS: DOLUTEGRAVIR SODIUM 50 MG TABLET (NON-FORMULARY) PO SCH (10:04)
[2020-12-19] MEDS: NICOTINE 7 MG/24 HOURS TOPICAL PATCH TD SCH (10:04)
[2020-12-19] MEDS: EMTRICITABINE/TENOFOV ALAFENAM (DESCOVY) TABLET PO SCH (10:06)
[2020-12-19] MEDS: ACETAMINOPHEN 325 MG TABLET (FP) PO PRN (21:40)
[2020-12-19] MEDS: hydrOXYzine PAMOATE 25 MG CAPSULE (FP) PO PRN (21:40)
[2020-12-19] MEDS: THIAMINE HCL 100 MG TABLET (FP) PO SCH (21:40)
[2020-12-19] MEDS: MELATONIN 5 MG TABLETS PO SCH (21:40)
[2020-12-20] MEDS: DRONABINOL 2.5 MG CAPSULE PO SCH ×3 (06:50→16:09)
[2020-12-20] MEDS: PRENATAL VITAMINS W/ FOLIC ACID TABLET (FP) PO SCH (10:00)
[2020-12-20] MEDS: PANTOPRAZOLE 40 MG TABLET PO SCH (10:00)
[2020-12-20] MEDS: ACETAMINOPHEN 325 MG TABLET (FP) PO PRN (10:00)
[2020-12-20] MEDS: LISINOPRIL 10 MG TABLET PO SCH (10:00)
[2020-12-20] MEDS: DOLUTEGRAVIR SODIUM 50 MG TABLET (NON-FORMULARY) PO SCH (10:02)
[2020-12-20] MEDS: EMTRICITABINE/TENOFOV ALAFENAM (DESCOVY) TABLET PO SCH (10:02)
[2020-12-20] MEDS: NICOTINE 7 MG/24 HOURS TOPICAL PATCH TD SCH (10:04)
[2020-12-20] MEDS: hydrOXYzine PAMOATE 25 MG CAPSULE (FP) PO PRN (21:33)
[2020-12-20] MEDS: THIAMINE HCL 100 MG TABLET (FP) PO SCH (21:33)
[2020-12-20] MEDS: MELATONIN 5 MG TABLETS PO SCH (21:33)
[2020-12-21] MEDS: DRONABINOL 2.5 MG CAPSULE PO SCH ×2 (06:15→10:02)
[2020-12-21] MEDS: ACETAMINOPHEN 325 MG TABLET (FP) PO PRN (06:15)
[2020-12-21 07:01] VITALS: BP 148/79; PULSE 79; TEMP 97.7
[2020-12-21] MEDS: DOLUTEGRAVIR SODIUM 50 MG TABLET (NON-FORMULARY) PO SCH (10:00)
[2020-12-21] MEDS: EMTRICITABINE/TENOFOV ALAFENAM (DESCOVY) TABLET PO SCH (10:00)
[2020-12-21] MEDS: LISINOPRIL 10 MG TABLET PO SCH (10:00)
[2020-12-21] MEDS: NICOTINE 7 MG/24 HOURS TOPICAL PATCH TD SCH (10:00)
[2020-12-21] MEDS: PANTOPRAZOLE 40 MG TABLET PO SCH (10:00)
[2020-12-21] MEDS: PRENATAL VITAMINS W/ FOLIC ACID TABLET (FP) PO SCH (10:00)
== END 2020-12-21 11:00 | disposition home or self-care (01) | DRG 772 ==
LOC: YASAS 14:11 → Y5N 14:12
PROVIDERS: ADMIT Allergy & Immunology; ATTEND Allergy & Immunology
PROC: HZ42ZZZ Group Counseling for Substance Abuse Treatment, Cognitive-Behavioral (ICD-10-PCS; principal; 2020-12-07)
DX: F10.20 Alcohol dependence, uncomplicated (principal); Z21 Asymptomatic human immunodeficiency virus [HIV] infection status; B18.2 Chronic viral hepatitis C; K21.9 Gastro-esophageal reflux disease without esophagitis; R64 Cachexia; R35.0 Frequency of micturition; Z86.19 Personal history of other infectious and parasitic diseases; Z87.828 Personal history of other (healed) physical injury and trauma; Z99.89 Dependence on other enabling machines and devices; Z68.1 Body mass index [BMI] 19.9 or less, adult
CPT/HCPCS: 81003; C9803; U0003